=== PATIENT | male | born 1960 | race Caucasian/White ===

== ENCOUNTER 2021-01-25 12:55 | Emergency (ER) | payer OTHER ==
[2021-01-25 13:07] VITALS: BP 141/86; PULSE 87
--- NOTE | 2021-01-25 13:38 | EDM.PDOC ---
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 Face/Facial Pain Score (Numeric/FACES): 7 - Related Data Allergies Allergy/AdvReac Type Severity Reaction Status Date / Time No Known Allergies Allergy Verified 01/25/21 13:12 Home Meds: Home Meds Aspirin 325 mg PO DAILY 01/25/21 [History] DULoxetine [Cymbalta] 20 mg PO DAILY 01/25/21 [History] Lisinopril/Hydrochlorothiazide [Lisinopril-Hctz 10-12.5 mg Tab] 1 each PO DAILY 01/25/21 [History] Omeprazole 20 mg PO DAILY 01/25/21 [History] Past Medical History Cardiovascular History: Reports: Hypertension Gastrointestinal History: Reports: GERD Social & Family History - Tobacco Use Tobacco Use Status *Q: Never Tobacco User ED ROS GENERAL - Review of Systems Review Of Systems: See Below Constitutional: Reports: No Symptoms HEENT: Reports: Other (Forehead contusion) Respiratory: Reports: No Symptoms Cardiovascular: Reports: No Symptoms GI/Abdominal: Reports: No Symptoms Musculoskeletal: Reports: No Symptoms Neurological: Reports: No Symptoms Psychiatric: Reports: No Symptoms ED EXAM, HEAD INJURY - Physical Exam Exam: See Below Exam Limited By: No Limitations General Appearance: Alert, WD/WN, Mild Distress Head: Facial Ecchymosis, Facial Swelling, Other (Left forehead with mild swelling and ecchymosis No laceration) Eyes: Bilateral Eye: EOMI, PERRL Ears: Normal TMs Nose: Normal Inspection Throat/Mouth: Normal Oropharynx Neck: Non-Tender Extremities: Normal Inspection Neurologic: No Motor/Sensory Deficits, Alert, Normal Mood/Affect, Oriented x 3 - Willard Coma Score Best Eye Response (Willard): (4) Open Spontaneously Best Verbal Response (Willard): (5) Oriented Best Motor Response (Gisella): (6) Obeys Commands Gisella Total: 15 Course - Vital Signs Last Recorded V/S: Last Vital Signs Temp 97.1 F 01/25/21 12:55 Pulse 87 01/25/21 12:55 Resp 20 01/25/21 12:55 BP 141/86 H 01/25/21 12:55 Pulse Ox 98 01/25/21 12:55 - Orders/Labs/Meds Orders: Active Orders 24 hr Category Date Time Status Head wo Cont [CT] Stat Exams 01/25/21 12:56 Taken Max Facial Sinus wo Cont [CT] Stat Exams 01/25/21 12:57 Taken - Re-Assessments/Exams Free Text/Narrative Re-Assessment/Exam: 01/25/21 13:36 CT: Per radiologist No acute findings Departure - Departure Time of Disposition: 13:45 Disposition: Home, Self-Care 01 Clinical Impression: Forehead contusion Qualifiers: Encounter type: initial encounter Qualified Code(s): S00.83XA - Contusion of other part of head, initial encounter - Discharge Information *PRESCRIPTION DRUG MONITORING PROGRAM REVIEWED*: Not Applicable *COPY OF PRESCRIPTION DRUG MONITORING REPORT IN PATIENT VIVIANE: Not Applicable Instructions: Facial or Scalp Contusion Referrals: Belem Nunes NP [Primary Care Provider] - Additional Instructions: Ice as needed Follow up in clinic Tylenol or Motrin as needed Sepsis Event Note (ED) - Evaluation Sepsis Screening Result: No Definite Risk - Focused Exam Vital Signs: Vital Signs Temp Pulse Resp BP Pulse Ox 01/25/21 12:55 97.1 F 87 20 141/86 H 98 - My Orders Last 24 Hours: My Active Orders 01/25/21 12:56 Head wo Cont [CT] Stat 01/25/21 12:57 Max Facial Sinus wo Cont [CT] Stat - Assessment/Plan Last 24 Hours: My Active Orders 01/25/21 12:56 Head wo Cont [CT] Stat 01/25/21 12:57 Max Facial Sinus wo Cont [CT] Stat
[2021-01-25] MEDS: Acetaminophen 500 MG Tab PO ONE (13:55)
== END 2021-01-25 14:15 | disposition home or self-care (01) ==
LOC: LL.ED 12:55
DX: S00.83XA Contusion of other part of head, initial encounter (principal); K21.9 Gastro-esophageal reflux disease without esophagitis; Z79.82 Long term (current) use of aspirin; Z79.899 Other long term (current) drug therapy; W22.8XXA Striking against or struck by other objects, initial encounter
CPT/HCPCS: 70450; 70486; 99283-25; A9270-GY